=== PATIENT | female | born 1945 | race Caucasian/White ===

== ENCOUNTER 2022-03-01 10:46 | Observation (INO) | payer MEDICARE, OTHER ==
[2022-03-01] MEDS ORDERED: Metoclopramide HCl 10 MG/2 ML VIAL ONE (11:36)
[2022-03-01] MEDS ORDERED: Fluorescein Opthalmic Strip ONE (11:36)
[2022-03-01] MEDS ORDERED: Proparacaine 0.5% Opth 15 ML BOT ONE (11:36)
[2022-03-01] MEDS ORDERED: diphenhydrAMINE 50 MG/ML VIAL ONE (11:36)
[2022-03-01 11:53] LABS: #Eosinphils 0.1 thou/uL (0.0-0.7); #Lymphocytes 1.1 thou/uL (1.20-3.40); #Monocytes 0.3 thou/uL (0.11-0.59); #Neutrophils 2.9 thou/uL (1.40-6.50); %Basophils 0.8 % (0.0-1.0); %Eosinophils 1.4 % (0.0-10.0); %Lymphocytes 25.1 % (21.0-51.0); %Monocytes 6.5 % (0.0-10.0); %Neutrophils 66.2 % (42.0-75.0); Hemoglobin 12.4 g/dL (12.0-16.0); Mean Corpuscular HGB CONC 32.3 g/dL (32.0-36.0); Mean Corpuscular Hemoglobin 29.1 pg (27.0-31.0); Mean Corpuscular Volume 89.9 fL (78.0-98.0); Mean Platelet Volume 8.9 fL (7.4-10.4); Platelet Count 165 thou/uL (130-400); RBC Distribution Width 12.7 % (11.5-14.5); Red Blood Cell (RBC) Count 4.26 mill/uL (4.20-5.40); White Blood Cell (WBC) Count 4.4 thou/uL (4.8-10.8)
[2022-03-01 12:52] LABS: ALT (SGPT) 17 U/L (8-55); AST (SGOT) 18 U/L (5-34); Albumin 3.9 g/dL (3.4-4.8); Alkaline Phosphatase 113 U/L (40-110); Anion Gap 13 mmol/L (10-20); BUN (Urea Nitrogen) 9 mg/dL (9.8-20.1); Bilirubin, Total 0.5 mg/dL (0.2-1.2); Calc. Creatinine Clearance 0 mL/min (70-130); Calcium 8.9 mg/dL (7.8-10.44); Carbon Dioxide 25 mmol/L (23-31); Chloride 108 mmol/L (98-107); Globulin 2.5 g/dL (2.4-3.5); Glucose 109 mg/dL (83-110); Potassium 4.1 mmol/L (3.5-5.1); Protein, Total 6.4 g/dL (5.8-8.1); Sodium 142 mmol/L (136-145)
== END 2022-03-01 16:12 | disposition home or self-care (01) ==
LOC: ERS 10:46 → ERHOLD 13:03
PROVIDERS: ADMIT Internal Medicine; ATTEND Internal Medicine
DX: G24.5 Blepharospasm (principal); R51.9 Headache, unspecified; R26.9 Unspecified abnormalities of gait and mobility; I10 Essential (primary) hypertension; G25.81 Restless legs syndrome; E03.9 Hypothyroidism, unspecified; K21.9 Gastro-esophageal reflux disease without esophagitis; M19.90 Unspecified osteoarthritis, unspecified site; Z79.899 Other long term (current) drug therapy; Z88.2 Allergy status to sulfonamides; Z98.84 Bariatric surgery status
CPT/HCPCS: 36415; 70450; 71045; 80053; 85025; 96365; 96375; G0378; J1200; J2765

== ENCOUNTER 2023-01-19 21:40 | Emergency (ER) | payer MEDICARE, OTHER ==
[2023-01-19 22:16] LABS: #Eosinphils 0.1 thou/uL (0.0-0.7); #Lymphocytes 1.5 thou/uL (1.20-3.40); #Monocytes 0.4 thou/uL (0.11-0.59); %Basophils 0.2 % (0.0-1.0); %Eosinophils 1.5 % (0.0-10.0); %Lymphocytes 24.8 % (21.0-51.0); %Monocytes 6.9 % (0.0-10.0); %Neutrophils 66.5 % (42.0-75.0); Mean Corpuscular HGB CONC 32.4 g/dL (32.0-36.0); Mean Corpuscular Hemoglobin 25.8 pg (27.0-31.0); Mean Corpuscular Volume 79.6 fl (78.0-98.0); Mean Platelet Volume 9.4 fL (7.4-10.4); Platelet Count 194 10x3/uL (130-400); RBC Distribution Width 14.7 % (11.5-14.5); Red Blood Cell (RBC) Count 4.25 mill/uL (4.20-5.40); White Blood Cell (WBC) Count 6.1 10x3/uL (4.8-10.8)
[2023-01-19 22:37] LABS: ALT (SGPT) 18 U/L (8-55); AST (SGOT) 18 U/L (5-34); Albumin 4.2 g/dL (3.4-4.8); Alkaline Phosphatase 128 U/L (40-110); Anion Gap 12 mmol/L (10-20); BUN (Urea Nitrogen) 13 mg/dL (9.8-20.1); Bilirubin, Total 0.3 mg/dL (0.2-1.2); Calc. Creatinine Clearance 0 mL/min (70-130); Calcium 9.7 mg/dL (7.8-10.44); Carbon Dioxide 24 mmol/L (23-31); Chloride 105 mmol/L (98-107); Estimated GFR 61; Globulin 3.3 g/dL (2.4-3.5); Glucose 98 mg/dL (83-110); Potassium 4.2 mmol/L (3.5-5.1); Protein, Total 7.5 g/dL (5.8-8.1); Sodium 137 mmol/L (136-145)
== END 2023-01-20 03:12 | disposition home or self-care (01) ==
LOC: ERS 21:40
DX: K44.9 Diaphragmatic hernia without obstruction or gangrene (principal); I10 Essential (primary) hypertension; R59.9 Enlarged lymph nodes, unspecified; E03.9 Hypothyroidism, unspecified; Z86.73 Personal history of transient ischemic attack (TIA), and cerebral infarction without residual deficits; Z79.899 Other long term (current) drug therapy
CPT/HCPCS: 36415; 71045; 74177; 80053; 83690; 84484; 85025; 93005; 94760

== ENCOUNTER 2023-07-05 00:59 | Inpatient (IN) | payer MEDICARE, OTHER ==
[2023-07-05] MEDS ORDERED: Ondansetron PF 4 MG/2 ML Vial ONE ×2 (01:22→01:42)
[2023-07-05] MEDS ORDERED: Morphine 4 MG/ML VIAL ONE (01:34)
[2023-07-05] MEDS ORDERED: diphenhydrAMINE 50 MG/ML VIAL ONE (01:58)
[2023-07-05] MEDS ORDERED: Metoclopramide HCl 10 MG/2 ML VIAL ONE (01:58)
[2023-07-05 02:09] LABS: #Eosinphils 0.1 thou/uL (0.0-0.7); #Monocytes 0.4 thou/uL (0.11-0.59); #Neutrophils 6.8 thou/uL (1.40-6.50); %Basophils 0.4 % (0.0-1.0); %Eosinophils 0.6 % (0.0-10.0); %Lymphocytes 11.6 % (21.0-51.0); %Monocytes 4.5 % (0.0-10.0); %Neutrophils 82.7 % (42.0-75.0); Hematocrit 26.8 % (36.0-47.0); Hemoglobin 7.7 g/dL (12.0-16.0); Mean Corpuscular HGB CONC 28.7 g/dL (32.0-36.0); Mean Corpuscular Volume 73.2 fl (78.0-98.0); Mean Platelet Volume 10.6 fL (7.4-10.4); Platelet Count 259 10x3/uL (130-400); RBC Distribution Width 16.5 % (11.5-14.5); Red Blood Cell (RBC) Count 3.66 mill/uL (4.20-5.40); White Blood Cell (WBC) Count 8.2 10x3/uL (4.8-10.8)
[2023-07-05 02:32] LABS: ALT (SGPT) 14 U/L (8-55); AST (SGOT) 15 U/L (5-34); Albumin 4.2 g/dL (3.4-4.8); Alkaline Phosphatase 126 U/L (40-110); Anion Gap 16 mmol/L (10-20); BUN (Urea Nitrogen) 14 mg/dL (9.8-20.1); Bilirubin, Total 0.6 mg/dL (0.2-1.2); Calc. Creatinine Clearance 0 mL/min (70-130); Calcium 9.3 mg/dL (7.8-10.44); Carbon Dioxide 21 mmol/L (23-31); Chloride 106 mmol/L (98-107); Estimated GFR 70; Globulin 3.3 g/dL (2.4-3.5); Glucose 114 mg/dL (83-110); Lipase 40 U/L (8-78); Potassium 3.8 mmol/L (3.5-5.1); Protein, Total 7.5 g/dL (5.8-8.1); Sodium 139 mmol/L (136-145)
[2023-07-05] MEDS ORDERED: Ondansetron ODT 4 MG TAB PO PRN (08:09)
[2023-07-05] MEDS ORDERED: Ondansetron PF 4 MG/2 ML Vial IVP PRN (08:09)
[2023-07-05] MEDS: Sodium Chloride 0.9% 1,000 ML IV SCH ×2 (09:20→21:18)
[2023-07-05] MEDS ORDERED: FLU VACC QS2023(65UP)/MF59C/PF 60 MCG/0.5 ML SYRINGE IM ONE (11:00)
[2023-07-05] MEDS ORDERED: diphenhydrAMINE 25 MG CAP PO PRN (11:05)
[2023-07-05] MEDS ORDERED: Morphine 2 MG/ML VIAL SLOW IVP PRN (11:09)
[2023-07-05] MEDS ORDERED: Methocarbamol 500 MG TAB PO SCH (11:30)
[2023-07-05] MEDS ORDERED: Iopamidol 370 76% 100 ML VIAL ONE (15:54)
[2023-07-05] MEDS: Acetaminophen 325 MG TAB PO PRN (19:53)
[2023-07-05] MEDS: Methocarbamol 500 MG TAB PO SCH (19:54)
[2023-07-06] MEDS ORDERED: rOPINIRole HCl 1 MG TAB PO SCH (00:45)
[2023-07-06] MEDS: Levothyroxine Sodium 75 MCG TAB PO SCH (04:40)
[2023-07-06 05:28] LABS: #Eosinphils 0.1 thou/uL (0.0-0.7); #Monocytes 0.3 thou/uL (0.11-0.59); #Neutrophils 2.4 thou/uL (1.40-6.50); %Basophils 0.3 % (0.0-1.0); %Eosinophils 1.8 % (0.0-10.0); %Lymphocytes 28.2 % (21.0-51.0); %Monocytes 7.8 % (0.0-10.0); %Neutrophils 61.6 % (42.0-75.0); Hematocrit 22.5 % (36.0-47.0); Hemoglobin 6.2 g/dL (12.0-16.0); Mean Corpuscular HGB CONC 27.6 g/dL (32.0-36.0); Mean Corpuscular Hemoglobin 20.7 pg (27.0-31.0); Mean Platelet Volume 11.5 fL (7.4-10.4); Platelet Count 219 10x3/uL (130-400); RBC Distribution Width 16.8 % (11.5-14.5); White Blood Cell (WBC) Count 3.9 10x3/uL (4.8-10.8)
[2023-07-06 05:53] LABS: Anion Gap 11 mmol/L (10-20); BUN (Urea Nitrogen) 12 mg/dL (9.8-20.1); Calc. Creatinine Clearance 85 mL/min (70-130); Calcium 8.4 mg/dL (7.8-10.44); Carbon Dioxide 23 mmol/L (23-31); Chloride 108 mmol/L (98-107); Estimated GFR 74; Glucose 72 mg/dL (83-110); Potassium 3.6 mmol/L (3.5-5.1); Sodium 138 mmol/L (136-145)
[2023-07-06] MEDS: Losartan 25 MG TAB PO SCH (08:24)
[2023-07-06 09:12] LABS: Hematocrit 23.4 % (36.0-47.0); Hemoglobin 6.6 g/dL (12.0-16.0); Platelet Count 212 10x3/uL (130-400)
[2023-07-06] MEDS: Methocarbamol 500 MG TAB PO SCH ×2 (09:21→21:46)
[2023-07-06] MEDS: Pantoprazole 40 MG VIAL IVP SCH (09:40)
[2023-07-06] MEDS ORDERED: MD-Gastroview 120 ML BOT ONE (11:22)
[2023-07-06] MEDS: Acetaminophen 325 MG TAB PO PRN ×2 (11:37→17:36)
[2023-07-06] MEDS: Sodium Chloride 0.9% 1,000 ML IV SCH (13:48)
[2023-07-06 14:34] LABS: Iron 52 ug/dL (50-170); Iron Binding Capacity, Total 429 mcg/dL (265-497)
[2023-07-06 18:11] LABS: Hematocrit 31.1 % (36.0-47.0); Platelet Count 265 10x3/uL (130-400)
[2023-07-06] MEDS: rOPINIRole HCl 1 MG TAB PO SCH (21:44)
[2023-07-07] MEDS: Sodium Chloride 0.9% 1,000 ML IV SCH ×3 (04:07→19:20)
[2023-07-07] MEDS: Levothyroxine Sodium 50 MCG TAB PO SCH (06:25)
[2023-07-07 06:51] LABS: #Monocytes 0.4 thou/uL (0.11-0.59); %Basophils 0.2 % (0.0-1.0); %Eosinophils 0.8 % (0.0-10.0); %Lymphocytes 15.8 % (21.0-51.0); %Monocytes 6.8 % (0.0-10.0); Hematocrit 25.5 % (36.0-47.0); Hemoglobin 7.5 g/dL (12.0-16.0); Mean Corpuscular HGB CONC 29.4 g/dL (32.0-36.0); Mean Corpuscular Hemoglobin 22.6 pg (27.0-31.0); Mean Corpuscular Volume 76.8 fl (78.0-98.0); Mean Platelet Volume 10.7 fL (7.4-10.4); Platelet Count 216 10x3/uL (130-400); RBC Distribution Width 17.2 % (11.5-14.5); Red Blood Cell (RBC) Count 3.32 mill/uL (4.20-5.40); White Blood Cell (WBC) Count 5.3 10x3/uL (4.8-10.8)
[2023-07-07 07:32] LABS: Anion Gap 15 mmol/L (10-20); BUN (Urea Nitrogen) 12 mg/dL (9.8-20.1); Calc. Creatinine Clearance 92 mL/min (70-130); Calcium 8.3 mg/dL (7.8-10.44); Carbon Dioxide 20 mmol/L (23-31); Chloride 111 mmol/L (98-107); Estimated GFR 81; Glucose 80 mg/dL (83-110); Potassium 3.7 mmol/L (3.5-5.1); Sodium 142 mmol/L (136-145)
[2023-07-07] MEDS: Losartan 25 MG TAB PO SCH (08:09)
[2023-07-07] MEDS: Pantoprazole 40 MG VIAL IVP SCH (08:10)
[2023-07-07] MEDS: Methocarbamol 500 MG TAB PO SCH ×2 (08:27→20:31)
[2023-07-07 13:45] LABS: Campy jejuni + coli by PCR Negative (Negative); STEC Shiga Toxin 1+2 Negative (Negative); Salmonella spp. by PCR Negative (Negative); Shigella spp + EIEC by PCR Negative (Negative)
[2023-07-07] MEDS: rOPINIRole HCl 1 MG TAB PO SCH (20:31)
[2023-07-07] MEDS: Acetaminophen 325 MG TAB PO PRN (20:33)
[2023-07-08] MEDS: Levothyroxine Sodium 75 MCG TAB PO SCH (05:23)
[2023-07-08 07:23] LABS: Hematocrit 24.7 % (36.0-47.0); Hemoglobin 7.4 g/dL (12.0-16.0); Platelet Count 208 10x3/uL (130-400)
[2023-07-08] MEDS: Losartan 25 MG TAB PO SCH (08:41)
[2023-07-08] MEDS: Methocarbamol 500 MG TAB PO SCH ×2 (08:41→20:17)
[2023-07-08] MEDS: Pantoprazole 40 MG VIAL IVP SCH (10:56)
[2023-07-08 11:45] VITALS: BMI 35.4
[2023-07-08] MEDS ORDERED: GoLYTELY 4,000 ml Bottle PO SCH (15:45)
[2023-07-08] MEDS: Sodium Chloride 0.9% 1,000 ML IV SCH (16:50)
[2023-07-08] MEDS: Acetaminophen 325 MG TAB PO PRN (20:10)
[2023-07-08] MEDS: rOPINIRole HCl 1 MG TAB PO SCH (20:17)
[2023-07-08] MEDS ORDERED: Metoclopramide HCl 10 MG/2 ML VIAL IVP PRN (22:55)
[2023-07-08] MEDS ORDERED: diphenhydrAMINE 50 MG/ML VIAL IVP SCH (23:00)
[2023-07-09] MEDS ORDERED: Preparation H Ointment 28 GM TUBE TOP PRN (03:33)
[2023-07-09] MEDS: Levothyroxine Sodium 50 MCG TAB PO SCH (05:02)
[2023-07-09 07:04] LABS: Hematocrit 26.3 % (36.0-47.0); Hemoglobin 7.9 g/dL (12.0-16.0)
[2023-07-09] MEDS: Losartan 25 MG TAB PO SCH ×2 (08:38→13:40)
[2023-07-09] MEDS: Methocarbamol 500 MG TAB PO SCH (08:38)
[2023-07-09] MEDS: Pantoprazole 40 MG VIAL IVP SCH (08:46)
[2023-07-09] MEDS: Sodium Chloride 0.9% 1,000 ML IV SCH (08:59)
[2023-07-09] MEDS ORDERED: Ketamine 50 MG/ML (10ML VIAL) ONE (11:26)
[2023-07-09] MEDS ORDERED: fentaNYL 50 mcg/mL 1 mL Vial ONE (11:26)
[2023-07-09] MEDS ORDERED: PROPOFOL 200 MG/20 ML VIAL ONE (11:45)
[2023-07-09] MEDS ORDERED: Promethazine HCl 25 MG/ML VIAL IM PRN (12:55)
[2023-07-09] MEDS ORDERED: Iopamidol-370 76% 500 ML MDV (1 ML CHARGE) ONE (13:28)
[2023-07-09 16:28] VITALS: BP 146/75; TEMP 98
== END 2023-07-09 17:12 | disposition home or self-care (01) | DRG 389 ==
LOC: ERS 00:59 → SUATTDRO 00:59 → T4-B 06:54 → OBSVTOIN 07-06 09:31 → T4-A 07-06 16:03 → T4-B 07-06 16:04
PROVIDERS: ADMIT Student in an Organized Health Care Education/Training Program; ATTEND Family Medicine
PROC: 30233N1 Transfusion of Nonautologous Red Blood Cells into Peripheral Vein, Percutaneous Approach (ICD-10-PCS; 2023-07-06)
PROC: 0DB98ZX Excision of Duodenum, Via Natural or Artificial Opening Endoscopic, Diagnostic (ICD-10-PCS; principal; 2023-07-09)
PROC: 0DB78ZX Excision of Stomach, Pylorus, Via Natural or Artificial Opening Endoscopic, Diagnostic (ICD-10-PCS; 2023-07-09)
PROC: 0DBK8ZZ Excision of Ascending Colon, Via Natural or Artificial Opening Endoscopic (ICD-10-PCS; 2023-07-09)
DX: K56.600 Partial intestinal obstruction, unspecified as to cause (principal); D62 Acute posthemorrhagic anemia; G45.9 Transient cerebral ischemic attack, unspecified; E03.9 Hypothyroidism, unspecified; I10 Essential (primary) hypertension; G25.81 Restless legs syndrome; Z96.651 Presence of right artificial knee joint; Z96.641 Presence of right artificial hip joint; D50.9 Iron deficiency anemia, unspecified; K44.9 Diaphragmatic hernia without obstruction or gangrene; K29.70 Gastritis, unspecified, without bleeding; K63.5 Polyp of colon; Z88.0 Allergy status to penicillin; Z88.2 Allergy status to sulfonamides; Z79.899 Other long term (current) drug therapy; Z86.73 Personal history of transient ischemic attack (TIA), and cerebral infarction without residual deficits; Z98.890 Other specified postprocedural states; Z90.49 Acquired absence of other specified parts of digestive tract; Z90.710 Acquired absence of both cervix and uterus
CPT/HCPCS: 36415; 36430; 74018; 74177; 74250; 80048; 80053; 82274; 82728; 83540; 83550; 83605; 83690; 85014; 85018; 85025; 85046; 85049; 86850; 86900; 86901; 87505; 88305; 96361; 96365; 96366; 96375; C9113; G0378; J1200; J2270; J2405; J2704; J2765; J3010; J7050; P9016; Q9963; Q9967

== ENCOUNTER 2023-07-12 00:46 | Inpatient (IN) | payer MEDICARE, OTHER ==
[2023-07-12 01:20] LABS: #Eosinphils 0.1 thou/uL (0.0-0.7); #Monocytes 0.4 thou/uL (0.11-0.59); #Neutrophils 4.9 thou/uL (1.40-6.50); %Basophils 0.5 % (0.0-1.0); %Eosinophils 2.3 % (0.0-10.0); %Lymphocytes 11.1 % (21.0-51.0); %Monocytes 7.1 % (0.0-10.0); %Neutrophils 78.5 % (42.0-75.0); Hematocrit 27.9 % (36.0-47.0); Hemoglobin 8.3 g/dL (12.0-16.0); Mean Corpuscular HGB CONC 29.7 g/dL (32.0-36.0); Mean Corpuscular Hemoglobin 22.6 pg (27.0-31.0); Mean Platelet Volume 10.8 fL (7.4-10.4); Platelet Count 231 10x3/uL (130-400); RBC Distribution Width 19.1 % (11.5-14.5); Red Blood Cell (RBC) Count 3.67 mill/uL (4.20-5.40); White Blood Cell (WBC) Count 6.2 10x3/uL (4.8-10.8)
[2023-07-12 01:44] LABS: ALT (SGPT) 19 U/L (8-55); AST (SGOT) 21 U/L (5-34); Albumin 3.9 g/dL (3.4-4.8); Alkaline Phosphatase 106 U/L (40-110); Anion Gap 14 mmol/L (10-20); BUN (Urea Nitrogen) 10 mg/dL (9.8-20.1); Bilirubin, Total 0.4 mg/dL (0.2-1.2); Calc. Creatinine Clearance 0 mL/min (70-130); Calcium 9.3 mg/dL (7.8-10.44); Carbon Dioxide 25 mmol/L (23-31); Chloride 104 mmol/L (98-107); Estimated GFR 86; Globulin 2.9 g/dL (2.4-3.5); Glucose 128 mg/dL (83-110); Potassium 3.3 mmol/L (3.5-5.1); Protein, Total 6.8 g/dL (5.8-8.1); Sodium 140 mmol/L (136-145)
[2023-07-12] MEDS ORDERED: Metoclopramide HCl 10 MG/2 ML VIAL ONE ×2 (03:44→13:44)
[2023-07-12] MEDS ORDERED: Morphine 4 MG/ML VIAL ONE (04:30)
[2023-07-12] MEDS ORDERED: Methocarbamol 500 MG TAB PO SCH (06:30)
[2023-07-12 07:14] LABS: Bacteria/HPF 3+ HPF (None Seen); Bilirubin Negative (Negative); Blood, Urine Negative (Negative); Calcium Oxalate Crystals 4+ HPF (None Seen); Clarity Turbid (Clear); Glucose, Urine (Dipstick) Normal (Negative); Ketone, Urine 10 mg/dL (Negative); Leukocyte 500 Leu/uL (Negative); Nitrite 2+ (Negative); Protein, Urine (Dipstick) 30 mg/dL (Neg-Trace); Urobilinogen Normal mg/dL (Less than 2); WBC/HPF Greater than 50 HPF (0-3)
[2023-07-12 07:16] LABS: Urine Culture Reflex Yes Yes
[2023-07-12] MEDS ORDERED: Morphine 2 MG/ML VIAL SLOW IVP PRN ×2 (08:59→18:51)
[2023-07-12] MEDS ORDERED: hydrALAZINE 20 MG/ML VIAL SLOW IVP PRN (08:59)
[2023-07-12] MEDS ORDERED: Bisacodyl 5 MG TAB PO PRN (08:59)
[2023-07-12] MEDS ORDERED: Sodium Chloride 0.9% 1,000 ML IV SCH (09:00)
[2023-07-12] MEDS ORDERED: Metoclopramide HCl 10 MG/2 ML VIAL IVP PRN (09:01)
[2023-07-12] MEDS ORDERED: Levothyroxine Sodium 50 MCG TAB PO SCH (09:45)
[2023-07-12] MEDS ORDERED: Potassium Chloride 40 MEQ in Premix Bag 1 BAG IVPB SCH (10:00)
[2023-07-12] MEDS: cefTRIAXone\\ROCEPHIN 1 GM in Sodium Chloride 0.9% 100 ML IVPB SCH (10:11)
[2023-07-12] MEDS: Pantoprazole 40 MG VIAL IVP SCH (10:11)
[2023-07-12 11:16] VITALS: BMI 36.3
[2023-07-12] MEDS ORDERED: Ketorolac Tromethamine 30 MG/ML VIAL ONE (13:45)
[2023-07-12] MEDS ORDERED: diphenhydrAMINE 50 MG/ML VIAL ONE ×2 (13:45→17:07)
[2023-07-12] MEDS ORDERED: Morphine 2 MG/ML VIAL ONE (15:27)
[2023-07-12] MEDS ORDERED: Bupivacaine 0.25% HCL 30 ML VIAL ONE (16:41)
[2023-07-12] MEDS ORDERED: EPINEPHrine 1 MG/ML AMP ONE (16:41)
[2023-07-12] MEDS ORDERED: fentaNYL PF 100 MCG/2 ML SYRINGE ONE (16:46)
[2023-07-12] MEDS ORDERED: Ondansetron PF 4 MG/2 ML Vial ONE (17:07)
[2023-07-12] MEDS ORDERED: NEOSTIGMINE 3 MG/3 ML SYR 3 MG/3 ML SYRINGE ONE (17:07)
[2023-07-12] MEDS ORDERED: Lidocaine 1% PF 5 ML VIAL ONE (17:07)
[2023-07-12] MEDS ORDERED: Rocuronium Bromide 10 MG/ML (10ML VIAL) ONE (17:07)
[2023-07-12] MEDS ORDERED: Glycopyrrolate 0.2 MG/ML 5 ML SYRINGE ONE (17:07)
[2023-07-12] MEDS ORDERED: PROPOFOL 200 MG/20 ML VIAL ONE (17:07)
[2023-07-12] MEDS ORDERED: Succinylcholine 200 MG/10 ml SYRINGE FS ONE (17:07)
[2023-07-12] MEDS ORDERED: Dexamethasone 20 MG/5 ML VIAL ONE (17:07)
[2023-07-12] MEDS ORDERED: PACU-Morphine 4MG/ML VIAL SLOW IVP PRN (17:46)
[2023-07-12] MEDS ORDERED: hydrALAZINE 20 MG/ML VIAL ONE (18:48)
[2023-07-12] MEDS ORDERED: Morphine 4 MG/ML VIAL SLOW IVP PRN (18:48)
[2023-07-12] MEDS ORDERED: fentaNYL 50 mcg/mL 1 mL Vial ONE ×2 (18:51→19:12)
[2023-07-12] MEDS ORDERED: Ketorolac Tromethamine 30 MG/ML VIAL IVP SCH (19:00)
[2023-07-12] MEDS ORDERED: Acetaminophen 500 MG TAB PO SCH (19:00)
[2023-07-12] MEDS ORDERED: ROPINIROLE HCL 3 MG PO SCH (21:00)
[2023-07-12] MEDS: 1/2 NS w/KCL 20 mEq 1,000 ML IV SCH (21:59)
[2023-07-12] MEDS: rOPINIRole HCl 1 MG TAB PO SCH (22:00)
[2023-07-12] MEDS: Methocarbamol 500 MG TAB PO SCH (22:00)
[2023-07-12] MEDS: Ketorolac Tromethamine 30 MG/ML VIAL IVP SCH (22:06)
[2023-07-13] MEDS: 1/2 NS w/KCL 20 mEq 1,000 ML IV SCH ×3 (05:37→20:38)
[2023-07-13] MEDS: Levothyroxine Sodium 75 MCG TAB PO SCH (05:38)
[2023-07-13] MEDS: Ketorolac Tromethamine 30 MG/ML VIAL IVP SCH ×3 (05:38→17:39)
[2023-07-13 06:33] LABS: ALT (SGPT) 22 U/L (8-55); AST (SGOT) 24 U/L (5-34); Albumin 3.2 g/dL (3.4-4.8); Alkaline Phosphatase 85 U/L (40-110); Anion Gap 12 mmol/L (10-20); BUN (Urea Nitrogen) 7 mg/dL (9.8-20.1); Bilirubin, Total 0.3 mg/dL (0.2-1.2); Calc. Creatinine Clearance 107 mL/min (70-130); Calcium 8.1 mg/dL (7.8-10.44); Carbon Dioxide 25 mmol/L (23-31); Chloride 106 mmol/L (98-107); Estimated GFR 90; Globulin 2.4 g/dL (2.4-3.5); Glucose 99 mg/dL (83-110); Potassium 3.6 mmol/L (3.5-5.1); Protein, Total 5.6 g/dL (5.8-8.1); Sodium 139 mmol/L (136-145)
[2023-07-13 06:43] LABS: #Monocytes 0.3 thou/uL (0.11-0.59); #Neutrophils 8.5 thou/uL (1.40-6.50); %Lymphocytes 4.6 % (21.0-51.0); %Neutrophils 92.1 % (42.0-75.0); Hematocrit 24.9 % (36.0-47.0); Hemoglobin 7.3 g/dL (12.0-16.0); Mean Corpuscular HGB CONC 29.3 g/dL (32.0-36.0); Mean Corpuscular Hemoglobin 22.8 pg (27.0-31.0); Mean Corpuscular Volume 77.8 fl (78.0-98.0); Mean Platelet Volume 10.9 fL (7.4-10.4); Platelet Count 197 10x3/uL (130-400); RBC Distribution Width 19.8 % (11.5-14.5); White Blood Cell (WBC) Count 9.3 10x3/uL (4.8-10.8)
[2023-07-13] MEDS: Ascorbic Acid 500 mg Chewable Tablet PO SCH (08:27)
[2023-07-13] MEDS: Losartan 25 MG TAB PO SCH (08:27)
[2023-07-13] MEDS: Methocarbamol 500 MG TAB PO SCH ×2 (08:27→20:40)
[2023-07-13] MEDS: Ferrous Sulfate 325 MG TAB PO SCH (08:27)
[2023-07-13] MEDS: Senokot S 8.6-50 MG TAB PO SCH ×2 (08:28→20:40)
[2023-07-13] MEDS: Acetaminophen 500 MG TAB PO SCH ×4 (08:28→21:57)
[2023-07-13] MEDS: Polyethylene Glycol 3350 17 GM Packet PO SCH (08:34)
[2023-07-13] MEDS: Pantoprazole 40 MG VIAL IVP SCH (08:35)
[2023-07-13] MEDS ORDERED: Losartan 25 MG TAB PO SCH (09:00)
[2023-07-13] MEDS ORDERED: Levothyroxine Sodium 75 MCG TAB PO SCH (09:00)
[2023-07-13] MEDS ORDERED: Ibuprofen 200 MG TAB PO PRN (09:57)
[2023-07-13] MEDS: cefTRIAXone\\ROCEPHIN 1 GM in Sodium Chloride 0.9% 100 ML IVPB SCH (10:03)
[2023-07-13] MEDS: traMADol HCl 50 MG TAB PO PRN (16:40)
[2023-07-13] MEDS: rOPINIRole HCl 1 MG TAB PO SCH (20:40)
[2023-07-13] MEDS: diphenhydrAMINE 25 MG CAP PO PRN (21:57)
[2023-07-14] MEDS: Ketorolac Tromethamine 30 MG/ML VIAL IVP SCH ×2 (00:54→05:31)
[2023-07-14] MEDS: 1/2 NS w/KCL 20 mEq 1,000 ML IV SCH ×4 (03:54→21:34)
[2023-07-14] MEDS: Levothyroxine Sodium 50 MCG TAB PO SCH (05:40)
[2023-07-14 08:06] LABS: #Eosinphils 0.1 thou/uL (0.0-0.7); #Monocytes 0.4 thou/uL (0.11-0.59); #Neutrophils 3.8 thou/uL (1.40-6.50); %Basophils 0.4 % (0.0-1.0); %Eosinophils 2.5 % (0.0-10.0); %Monocytes 7.5 % (0.0-10.0); %Neutrophils 73.4 % (42.0-75.0); Hematocrit 25.4 % (36.0-47.0); Hemoglobin 7.2 g/dL (12.0-16.0); Mean Corpuscular HGB CONC 28.3 g/dL (32.0-36.0); Mean Corpuscular Hemoglobin 22.3 pg (27.0-31.0); Mean Corpuscular Volume 78.6 fl (78.0-98.0); Mean Platelet Volume 10.9 fL (7.4-10.4); Platelet Count 191 10x3/uL (130-400); RBC Distribution Width 20.4 % (11.5-14.5); Red Blood Cell (RBC) Count 3.23 mill/uL (4.20-5.40); White Blood Cell (WBC) Count 5.2 10x3/uL (4.8-10.8)
[2023-07-14] MEDS: Polyethylene Glycol 3350 17 GM Packet PO SCH (08:21)
[2023-07-14] MEDS: Acetaminophen 500 MG TAB PO SCH ×4 (08:21→21:33)
[2023-07-14] MEDS: Methocarbamol 500 MG TAB PO SCH ×2 (08:21→21:32)
[2023-07-14] MEDS: Senokot S 8.6-50 MG TAB PO SCH ×2 (08:22→21:34)
[2023-07-14] MEDS: Ferrous Sulfate 325 MG TAB PO SCH (08:22)
[2023-07-14] MEDS: Losartan 25 MG TAB PO SCH (08:22)
[2023-07-14] MEDS: Pantoprazole 40 MG VIAL IVP SCH (08:22)
[2023-07-14] MEDS: Ascorbic Acid 500 mg Chewable Tablet PO SCH (08:22)
[2023-07-14 08:29] LABS: Anion Gap 10 mmol/L (10-20); BUN (Urea Nitrogen) 13 mg/dL (9.8-20.1); Calc. Creatinine Clearance 90 mL/min (70-130); Calcium 8.4 mg/dL (7.8-10.44); Carbon Dioxide 24 mmol/L (23-31); Chloride 107 mmol/L (98-107); Estimated GFR 78; Glucose 77 mg/dL (83-110); Sodium 137 mmol/L (136-145)
[2023-07-14 09:23] LABS: Anisocytosis SLIGHT = 6-15 cells HPF (0-5); CellaVision Operator ID lab.dlt; Hypochromia SLIGHT = 6-15 cells HPF (0-5); Ovalocytes SLIGHT = 2-5 cells HPF (0-1); Platelet Adequacy Comment Platelets Normal; Poikilocytosis SLIGHT = 6-15 cells HPF (0-5); Polychromasia SLIGHT = 2-3 cells HPF (0-2); Schistocytes SLIGHT = 2-5 cells HPF (0-1)
[2023-07-14] MEDS: cefTRIAXone\\ROCEPHIN 1 GM in Sodium Chloride 0.9% 100 ML IVPB SCH (10:34)
[2023-07-14] MEDS: traMADol HCl 50 MG TAB PO PRN (13:15)
[2023-07-14] MEDS: rOPINIRole HCl 1 MG TAB PO SCH (21:32)
[2023-07-14] MEDS: diphenhydrAMINE 25 MG CAP PO PRN (21:38)
[2023-07-14] MEDS ORDERED: Promethazine HCl 12.5 MG in Sodium Chloride 0.9% 50 ML IVPB SCH (23:00)
[2023-07-15] MEDS ORDERED: Metoclopramide HCl 10 MG/2 ML VIAL IVP PRN (02:40)
[2023-07-15] MEDS: 1/2 NS w/KCL 20 mEq 1,000 ML IV SCH (03:09)
[2023-07-15] MEDS: Levothyroxine Sodium 75 MCG TAB PO SCH (06:14)
[2023-07-15 06:32] LABS: #Eosinphils 0.2 thou/uL (0.0-0.7); #Monocytes 0.3 thou/uL (0.11-0.59); #Neutrophils 4.4 thou/uL (1.40-6.50); %Basophils 0.5 % (0.0-1.0); %Eosinophils 2.8 % (0.0-10.0); %Lymphocytes 15.1 % (21.0-51.0); %Monocytes 5.4 % (0.0-10.0); %Neutrophils 75.2 % (42.0-75.0); Hemoglobin 8.7 g/dL (12.0-16.0); Mean Corpuscular Hemoglobin 23.8 pg (27.0-31.0); Mean Corpuscular Volume 79.5 fl (78.0-98.0); Mean Platelet Volume 10.8 fL (7.4-10.4); Platelet Count 198 10x3/uL (130-400); RBC Distribution Width 20.9 % (11.5-14.5); Red Blood Cell (RBC) Count 3.65 mill/uL (4.20-5.40); White Blood Cell (WBC) Count 5.8 10x3/uL (4.8-10.8)
[2023-07-15 07:02] LABS: Anion Gap 11 mmol/L (10-20); BUN (Urea Nitrogen) 11 mg/dL (9.8-20.1); Calc. Creatinine Clearance 98 mL/min (70-130); Carbon Dioxide 23 mmol/L (23-31); Chloride 109 mmol/L (98-107); Estimated GFR 86; Glucose 70 mg/dL (83-110); Potassium 4.2 mmol/L (3.5-5.1); Sodium 139 mmol/L (136-145)
[2023-07-15] MEDS: Polyethylene Glycol 3350 17 GM Packet PO SCH (08:02)
[2023-07-15] MEDS: Senokot S 8.6-50 MG TAB PO SCH ×2 (08:02→21:25)
[2023-07-15] MEDS: Ascorbic Acid 500 mg Chewable Tablet PO SCH (08:02)
[2023-07-15] MEDS: Acetaminophen 500 MG TAB PO SCH ×4 (08:02→21:23)
[2023-07-15] MEDS: Losartan 25 MG TAB PO SCH (08:02)
[2023-07-15] MEDS: Ferrous Sulfate 325 MG TAB PO SCH ×2 (08:03→21:24)
[2023-07-15] MEDS: Methocarbamol 500 MG TAB PO SCH ×2 (08:03→21:24)
[2023-07-15] MEDS: Pantoprazole 40 MG VIAL IVP SCH (08:03)
[2023-07-15] MEDS: cefTRIAXone\\ROCEPHIN 1 GM in Sodium Chloride 0.9% 100 ML IVPB SCH (09:27)
[2023-07-15] MEDS: Ciprofloxacin 500 MG TAB PO SCH (21:21)
[2023-07-15] MEDS: rOPINIRole HCl 1 MG TAB PO SCH (21:24)
[2023-07-15] MEDS: diphenhydrAMINE 25 MG CAP PO PRN (23:30)
[2023-07-16] MEDS ORDERED: GUAIFENESIN SF SOLN 200 MG/10 ML UDCUP PO PRN (00:28)
[2023-07-16] MEDS ORDERED: Benzonatate 100 MG CAP PO PRN (00:28)
[2023-07-16] MEDS: traMADol HCl 50 MG TAB PO PRN (02:27)
[2023-07-16] MEDS: Ciprofloxacin 500 MG TAB PO SCH (06:35)
[2023-07-16] MEDS: Levothyroxine Sodium 50 MCG TAB PO SCH (06:35)
[2023-07-16] MEDS: Acetaminophen 500 MG TAB PO SCH ×3 (08:07→16:56)
[2023-07-16] MEDS: Senokot S 8.6-50 MG TAB PO SCH (08:08)
[2023-07-16] MEDS: Ascorbic Acid 500 mg Chewable Tablet PO SCH (08:08)
[2023-07-16] MEDS: Methocarbamol 500 MG TAB PO SCH (08:08)
[2023-07-16] MEDS: Polyethylene Glycol 3350 17 GM Packet PO SCH (08:08)
[2023-07-16] MEDS: Ferrous Sulfate 325 MG TAB PO SCH ×3 (08:08→08:13)
[2023-07-16] MEDS: Losartan 25 MG TAB PO SCH (08:08)
[2023-07-16] MEDS ORDERED: Non-Formulary Item 1 EACH (Esomeprazole Magnesium [Nexium] 20 MG Capsule.Dr) PO SCH (09:00)
[2023-07-16 20:50] VITALS: BP 165/80; TEMP 98.1
== END 2023-07-16 19:45 | disposition home or self-care (01) | DRG 330 ==
LOC: ERS 00:46 → T4-A 06:59
PROVIDERS: ADMIT Student in an Organized Health Care Education/Training Program; ATTEND Internal Medicine
PROC: 0DB80ZZ Excision of Small Intestine, Open Approach (ICD-10-PCS; principal; 2023-07-12)
PROC: 0WJG4ZZ Inspection of Peritoneal Cavity, Percutaneous Endoscopic Approach (ICD-10-PCS; 2023-07-12)
PROC: 0DBU0ZZ Excision of Omentum, Open Approach (ICD-10-PCS; 2023-07-12)
PROC: 30233N1 Transfusion of Nonautologous Red Blood Cells into Peripheral Vein, Percutaneous Approach (ICD-10-PCS; 2023-07-14)
DX: C17.9 Malignant neoplasm of small intestine, unspecified (principal); D62 Acute posthemorrhagic anemia; K56.50 Intestinal adhesions [bands], unspecified as to partial versus complete obstruction; N39.0 Urinary tract infection, site not specified; I10 Essential (primary) hypertension; E03.9 Hypothyroidism, unspecified; G25.81 Restless legs syndrome; Z96.641 Presence of right artificial hip joint; Z96.651 Presence of right artificial knee joint; E87.6 Hypokalemia; D50.9 Iron deficiency anemia, unspecified; Z53.31 Laparoscopic surgical procedure converted to open procedure; Z90.49 Acquired absence of other specified parts of digestive tract; Z90.710 Acquired absence of both cervix and uterus; Z98.890 Other specified postprocedural states; Z86.73 Personal history of transient ischemic attack (TIA), and cerebral infarction without residual deficits; Z79.899 Other long term (current) drug therapy; Z88.0 Allergy status to penicillin; Z88.2 Allergy status to sulfonamides; Z88.8 Allergy status to other drugs, medicaments and biological substances; Z82.49 Family history of ischemic heart disease and other diseases of the circulatory system
CPT/HCPCS: 36415; 36430; 71045; 74022; 74177; 80048; 80053; 81001; 83605; 85025; 86850; 86900; 86901; 87077; 87086; 87186; 88309; 88341; 88342; 93005; 96365; 96366; 96375; A4314; C1751; C9113; J0171; J0360; J0696; J1100; J1200; J1650; J1885; J2270; J2272; J2405; J2550; J2704; J2765; J3010; J3480; J3490; J7050; P9016; S0020

== ENCOUNTER 2023-07-19 18:14 | Inpatient (IN) | payer MEDICARE, OTHER ==
[2023-07-19 19:14] LABS: Bilirubin Negative (Negative); Blood, Urine Negative (Negative); Glucose, Urine (Dipstick) Negative (Negative); Ketone, Urine Negative (Negative); Leukocyte Negative (Negative); Nitrite Negative (Negative); Protein, Urine (Dipstick) Negative (Neg-Trace); Urobilinogen 0.2 mg/dL (Less than 2); pH, Urine 5.5 (5.0-9.0)
[2023-07-19] MEDS ORDERED: Prochlorperazine 10 MG/2 ML VIAL IVP SCH (19:15)
[2023-07-19 19:16] LABS: Clarity Clear (Clear)
[2023-07-19 19:18] LABS: CAUTI Indications for Culture Pelvic or flank pain; Mucous/LPF Rare LPF (<2+); RBC/HPF 0-3 HPF (0-3); Squamous Epithelial 0-3 HPF (0-3); WBC/HPF 0-3 HPF (0-3)
[2023-07-19 19:25] LABS: Bacteria/HPF Rare-Few HPF (None Seen); Specific Gravity, Urine Greater than 1.060 (1.002-1.036)
[2023-07-19 19:26] LABS: Urine Culture Reflex No No
[2023-07-19 19:49] LABS: #Eosinphils 0.2 thou/uL (0.0-0.7); #Monocytes 0.7 thou/uL (0.11-0.59); #Neutrophils 7.3 thou/uL (1.40-6.50); %Basophils 0.2 % (0.0-1.0); %Eosinophils 1.7 % (0.0-10.0); %Lymphocytes 8.5 % (21.0-51.0); %Monocytes 7.6 % (0.0-10.0); %Neutrophils 81.7 % (42.0-75.0); Hematocrit 39.9 % (36.0-47.0); Hemoglobin 11.4 g/dL (12.0-16.0); Mean Corpuscular HGB CONC 28.6 g/dL (32.0-36.0); Mean Corpuscular Hemoglobin 23.6 pg (27.0-31.0); Mean Corpuscular Volume 82.4 fl (78.0-98.0); Mean Platelet Volume 11.1 fL (7.4-10.4); Platelet Count 244 10x3/uL (130-400); RBC Distribution Width 24.5 % (11.5-14.5); Red Blood Cell (RBC) Count 4.84 mill/uL (4.20-5.40); White Blood Cell (WBC) Count 8.9 10x3/uL (4.8-10.8)
[2023-07-19 20:11] LABS: CellaVision Operator ID LAB.MJL; Hypochromia SLIGHT = 6-15 cells HPF (0-5); Ovalocytes SLIGHT = 2-5 cells HPF (0-1); Platelet Adequacy Comment Platelets Normal; Poikilocytosis SLIGHT = 6-15 cells HPF (0-5); Polychromasia SLIGHT = 2-3 cells HPF (0-2); Tear Drops SLIGHT = 2-5 cells HPF (0-1)
[2023-07-19] MEDS ORDERED: rOPINIRole HCl 2 MG TAB PO SCH (20:15)
[2023-07-19] MEDS ORDERED: Methocarbamol 500 MG TAB PO SCH (20:15)
[2023-07-19 20:18] LABS: ALT (SGPT) 36 U/L (8-55); AST (SGOT) 29 U/L (5-34); Albumin 4.4 g/dL (3.4-4.8); Alkaline Phosphatase 117 U/L (40-110); Anion Gap 17 mmol/L (10-20); BUN (Urea Nitrogen) 15 mg/dL (9.8-20.1); Bilirubin, Total 0.4 mg/dL (0.2-1.2); Calc. Creatinine Clearance 0 mL/min (70-130); Calcium 9.6 mg/dL (7.8-10.44); Carbon Dioxide 20 mmol/L (23-31); Chloride 104 mmol/L (98-107); Estimated GFR 73; Globulin 2.9 g/dL (2.4-3.5); Glucose 106 mg/dL (83-110); Lipase 20 U/L (8-78); Magnesium 2.1 mg/dL (1.6-2.6); Potassium 4.2 mmol/L (3.5-5.1); Protein, Total 7.3 g/dL (5.8-8.1); Sodium 137 mmol/L (136-145)
[2023-07-19 20:28] LABS: Troponin I Less than 0.010 ng/mL (< 0.028)
[2023-07-19] MEDS ORDERED: Acetaminophen 325 MG TAB PO PRN (21:00)
[2023-07-19] MEDS ORDERED: Prochlorperazine 10 MG/2 ML VIAL IVP PRN (21:00)
[2023-07-19] MEDS ORDERED: Sodium Chloride 0.9% 1,000 ML IV SCH (21:00)
[2023-07-19] MEDS ORDERED: Ketorolac Tromethamine 30 MG/ML VIAL ONE (21:41)
[2023-07-19] MEDS ORDERED: Acetaminophen 500 MG TAB ONE (21:41)
[2023-07-19 22:30] VITALS: BMI 34.4
[2023-07-19] MEDS ORDERED: Promethazine HCl 12.5 MG in Sodium Chloride 0.9% 50 ML IVPB PRN (22:37)
[2023-07-19] MEDS: Sodium Chloride 0.9% 1,000 ML IV SCH (23:18)
[2023-07-20] MEDS: Acetaminophen 500 MG TAB PO SCH ×3 (01:11→18:37)
[2023-07-20] MEDS: Sodium Chloride 0.9% 1,000 ML IV SCH (03:49)
[2023-07-20 08:41] LABS: #Eosinphils 0.2 thou/uL (0.0-0.7); #Monocytes 0.5 thou/uL (0.11-0.59); %Basophils 0.6 % (0.0-1.0); %Eosinophils 3.4 % (0.0-10.0); %Lymphocytes 11.4 % (21.0-51.0); %Monocytes 9.5 % (0.0-10.0); %Neutrophils 74.9 % (42.0-75.0); Hematocrit 34.1 % (36.0-47.0); Hemoglobin 9.9 g/dL (12.0-16.0); Mean Corpuscular Hemoglobin 23.8 pg (27.0-31.0); Mean Platelet Volume 11.1 fL (7.4-10.4); Platelet Count 218 10x3/uL (130-400); RBC Distribution Width 24.1 % (11.5-14.5); Red Blood Cell (RBC) Count 4.16 mill/uL (4.20-5.40); White Blood Cell (WBC) Count 5.3 10x3/uL (4.8-10.8)
[2023-07-20] MEDS ORDERED: Senokot S 8.6-50 MG TAB PO SCH (09:00)
[2023-07-20] MEDS ORDERED: Polyethylene Glycol 3350 17 GM Packet PO SCH (09:00)
[2023-07-20] MEDS ORDERED: Famotidine/PF 20 mg/2ml Vial SLOW IVP SCH (09:00)
[2023-07-20 09:03] LABS: Anion Gap 10 mmol/L (10-20); BUN (Urea Nitrogen) 13 mg/dL (9.8-20.1); Calc. Creatinine Clearance 94 mL/min (70-130); Calcium 8.5 mg/dL (7.8-10.44); Carbon Dioxide 26 mmol/L (23-31); Chloride 110 mmol/L (98-107); Estimated GFR 87; Glucose 90 mg/dL (83-110); Potassium 3.8 mmol/L (3.5-5.1); Sodium 142 mmol/L (136-145)
[2023-07-20] MEDS ORDERED: MD-Gastroview 120 ML BOT ONE (14:26)
[2023-07-20] MEDS: Potassium Chloride 20 MEQ in Lactated Ringer's 1,000 ML IV SCH (15:55)
[2023-07-20] MEDS ORDERED: rOPINIRole HCl 2 MG TAB PO SCH (21:00)
[2023-07-21] MEDS: Acetaminophen 500 MG TAB PO SCH ×3 (00:17→13:30)
[2023-07-21] MEDS: Potassium Chloride 20 MEQ in Lactated Ringer's 1,000 ML IV SCH (00:42)
[2023-07-21 05:20] LABS: #Eosinphils 0.2 thou/uL (0.0-0.7); #Monocytes 0.6 thou/uL (0.11-0.59); #Neutrophils 3.3 thou/uL (1.40-6.50); %Basophils 0.4 % (0.0-1.0); %Eosinophils 3.3 % (0.0-10.0); %Lymphocytes 18.4 % (21.0-51.0); %Monocytes 11.2 % (0.0-10.0); %Neutrophils 66.5 % (42.0-75.0); Hematocrit 33.2 % (36.0-47.0); Hemoglobin 9.8 g/dL (12.0-16.0); Mean Corpuscular HGB CONC 29.5 g/dL (32.0-36.0); Mean Corpuscular Hemoglobin 24.1 pg (27.0-31.0); Mean Corpuscular Volume 81.6 fl (78.0-98.0); Mean Platelet Volume 10.9 fL (7.4-10.4); Platelet Count 235 10x3/uL (130-400); RBC Distribution Width 24.4 % (11.5-14.5); Red Blood Cell (RBC) Count 4.07 mill/uL (4.20-5.40); White Blood Cell (WBC) Count 4.9 10x3/uL (4.8-10.8)
[2023-07-21 05:54] LABS: Anion Gap 12 mmol/L (10-20); BUN (Urea Nitrogen) 12 mg/dL (9.8-20.1); Calc. Creatinine Clearance 93 mL/min (70-130); Carbon Dioxide 24 mmol/L (23-31); Chloride 109 mmol/L (98-107); Estimated GFR 86; Glucose 103 mg/dL (83-110); Potassium 3.8 mmol/L (3.5-5.1); Sodium 141 mmol/L (136-145)
[2023-07-21] MEDS ORDERED: Levothyroxine Sodium 50 MCG TAB PO SCH (06:00)
[2023-07-21] MEDS ORDERED: Methocarbamol 500 MG TAB PO SCH (09:00)
[2023-07-21] MEDS ORDERED: Losartan 25 MG TAB PO SCH (09:00)
[2023-07-21 12:10] VITALS: TEMP 97.9
[2023-07-21 15:59] VITALS: BP 154/68
[2023-07-22] MEDS ORDERED: Levothyroxine Sodium 75 MCG TAB PO SCH (06:00)
[2023-07-22] MEDS ORDERED: FLU VACC QS2023(65UP)/MF59C/PF 60 MCG/0.5 ML SYRINGE IM ONE (09:00)
== END 2023-07-21 18:30 | disposition home or self-care (01) | DRG 392 ==
LOC: ERS 18:14 → SURG B 20:44
PROVIDERS: ADMIT Surgery; ATTEND Surgery
DX: K52.9 Noninfective gastroenteritis and colitis, unspecified (principal); K56.7 Ileus, unspecified; G25.81 Restless legs syndrome; E03.9 Hypothyroidism, unspecified; Z96.651 Presence of right artificial knee joint; Z96.641 Presence of right artificial hip joint; I10 Essential (primary) hypertension; Z86.73 Personal history of transient ischemic attack (TIA), and cerebral infarction without residual deficits; Z98.890 Other specified postprocedural states; Z90.49 Acquired absence of other specified parts of digestive tract; Z90.710 Acquired absence of both cervix and uterus; Z88.8 Allergy status to other drugs, medicaments and biological substances; Z88.0 Allergy status to penicillin; Z88.2 Allergy status to sulfonamides
CPT/HCPCS: 36415; 74022; 74250; 80048; 80053; 81001; 83605; 83690; 83735; 84484; 85025; 87324; 87449; 96374; 96375; J0780; J1650; J1885; J3480; J7050; J7120; Q9963

== ENCOUNTER 2023-08-14 10:15 | Outpatient (CLI) | payer MEDICARE, OTHER | END 2023-08-14 10:16 | LOC: PET 10:15 | PROVIDERS: ATTEND Internal Medicine Hematology & Oncology | DX: C17.1 Malignant neoplasm of jejunum (principal); Z98.890 Other specified postprocedural states | CPT/HCPCS: 78815; A9552 ==

== ENCOUNTER 2023-08-18 13:20 | Outpatient (CLI) | payer MEDICARE, OTHER | END 2023-08-18 13:21 | disposition home or self-care (01) | LOC: BICMAMMO 13:20 | PROVIDERS: ATTEND Family Medicine | DX: Z12.31 Encounter for screening mammogram for malignant neoplasm of breast (principal); Z13.820 Encounter for screening for osteoporosis; N95.9 Unspecified menopausal and perimenopausal disorder; M81.0 Age-related osteoporosis without current pathological fracture; Z80.3 Family history of malignant neoplasm of breast | CPT/HCPCS: 77063; 77067; 77080 ==